=== PATIENT | male | born 1975 | race Caucasian/White ===

== ENCOUNTER 2019-09-23 02:47 | Inpatient (IN) ==
[2019-09-23] MEDS ORDERED: ONDANSETRON 4 MG/2 ML VIAL IV STA (03:18)
[2019-09-23 03:55] LABS: Basophils % 0.3 % (0.0-0.8); Eosinophils % 0.2 % (0.00-10.9); Hematocrit 44.6 VOL% (42.0-52.0); Hemoglobin 14.7 GM/DL (14.0-18.0); Immature Granulocytes % 0.5 %; Immature Granulocytes Absolute 0.04 #; Lymphocytes # 0.9 10*3/uL (1.4-4.0); Lymphocytes % 10.3 % (21.2-54.2); Mean Corpuscular Volume 95.7 FL (87-102); Monocytes % 9.7 % (1.7-12.7); Platelet Count 184 T/CUMM (130-400); Red Blood Count 4.66 MC/CUMM (3.8-5.5); Red Cell Distribution Width 11.9 % (9.3-17.3); White Blood Count 8.9 T/CUMM (4-12)
[2019-09-23 04:13] LABS: Apearance,Urine CLEAR (Clear); Bilirubin,Urine Negative (Negative); Blood, Urine Small mg/dL (Negative); Glucose,Urine (UA) Negative (Negative); Ketones,Urine 5 mg/dL (Negative); Mucus,Urine Occasional /LPF (Occasional); Nitrite,Urine Negative (Negative); Protein,Urine Negative; RBC,Urine <1 /HPF (0-4); Urine Color Yellow (Yellow); Urine Specific Gravity 1.018 (1.001-1.035); Urine Urobilinogen < 2.0 EU/DL (0.2-1.0); WBC,Urine 1 /HPF (0-6)
[2019-09-23 04:25] LABS: Albumin 3.1 G/DL (3.4-5.0); Bilirubin,Total 0.5 MG/DL (0.2-1.0); Osmolality,Calculated 263.4 MOS/KG (273-304); Total Protein 6.7 G/DL (6.4-8.3)
[2019-09-23] MEDS ORDERED: MORPHINE 4 MG/1 ML VIAL IV STA (04:27)
[2019-09-23] MEDS ORDERED: PIPERACILLIN/TAZOBACTAM 3,375 MG in SODIUM CHLORIDE 0.9% 100 ML IV STA (04:35)
[2019-09-23] MEDS ORDERED: ACETAMINOPHEN 325 MG TABLET PO PRN (04:59)
[2019-09-23] MEDS ORDERED: HYDROmorphone 2 MG/1 ML VIAL IV ONE (07:33)
[2019-09-23] MEDS ORDERED: ceFAZolin 1,000 MG in SYRINGE 1 EACH IV ONE (08:31)
[2019-09-23] MEDS: DEXTROSE 5% NACL 0.45% 1,000 ML IV SCH ×3 (10:07→15:01)
[2019-09-23] MEDS ORDERED: diphenhydrAMINE 50 MG/1 ML VIAL IV PRN (10:12)
[2019-09-23] MEDS ORDERED: PROMETHAZINE INJ 25 MG in SODIUM CHLORIDE 0.9% 50 ML IV PRN (10:12)
[2019-09-23] MEDS ORDERED: HYDROmorphone 2 MG/1 ML VIAL IV PRN (10:12)
[2019-09-23] MEDS ORDERED: MEPERIDINE 25 MG/1 ML VIAL IV PRN (10:12)
[2019-09-23] MEDS ORDERED: ONDANSETRON 4 MG/2 ML VIAL IV PRN (10:12)
[2019-09-23] MEDS ORDERED: MIDAZOLAM 2 MG/2 ML VIAL ONE ×2 (10:23→12:28)
[2019-09-23] MEDS ORDERED: ROPIVACAINE 0.5% 30 ML VIAL ONE (10:33)
[2019-09-23] MEDS ORDERED: LIDOCAINE 1% 5 ML VIAL ONE (10:33)
[2019-09-23] MEDS ORDERED: SUGAMMADEX 200 MG/2 ML VIAL IV ONE (11:10)
[2019-09-23] MEDS ORDERED: TISSUE ADHESIVE 1 EACH APPLICATOR TOP ONE (11:49)
[2019-09-23] MEDS ORDERED: ONDANSETRON 4 MG/2 ML VIAL ONE ×2 (12:13→12:28)
[2019-09-23] MEDS ORDERED: MEPERIDINE 25 MG/1 ML VIAL ONE (12:13)
[2019-09-23] MEDS ORDERED: KETOROLAC 30 MG/1 ML VIAL IV ONE (12:15)
[2019-09-23] MEDS ORDERED: ACETAMINOPHEN INJ 1,000 MG in PREMIX 1 EACH IV ONE (12:15)
[2019-09-23] MEDS ORDERED: KETOROLAC 30 MG/1 ML VIAL ONE (12:21)
[2019-09-23] MEDS ORDERED: ACETAMINOPHEN 1,000 MG/100 ML VIAL IV ONE (12:21)
[2019-09-23] MEDS ORDERED: propofoL 200 MG/20 ML VIAL IV ONE (12:27)
[2019-09-23] MEDS ORDERED: DESFLURANE 1 UNIT/15 MINUTE INH ONE (12:28)
[2019-09-23] MEDS ORDERED: LIDOCAINE 2% 5 ML VIAL ONE (12:28)
[2019-09-23] MEDS ORDERED: fentaNYL 250 MCG/5 ML VIAL ONE (12:28)
[2019-09-23] MEDS ORDERED: SUCCINYLCHOLINE 200 MG/10 ML VIAL ONE (12:29)
[2019-09-23] MEDS ORDERED: ROCURONIUM 100 MG/10 ML VIAL IV ONE (12:29)
[2019-09-23] MEDS ORDERED: PHENYLEPHRINE 1 MG/10 ML SYRINGE IV ONE (12:29)
[2019-09-23] MEDS: PANTOPRAZOLE 40 MG VIAL IV SCH (15:00)
[2019-09-23] MEDS: PIPERACILLIN/TAZOBACTAM 3,375 MG in SODIUM CHLORIDE 0.9% 100 ML IV SCH (17:19)
[2019-09-23] MEDS: ONDANSETRON 4 MG/2 ML VIAL IV PRN (20:30)
[2019-09-23] MEDS: MORPHINE 4 MG/1 ML VIAL IV PRN (20:34)
[2019-09-24] MEDS: DEXTROSE 5% NACL 0.45% 1,000 ML IV SCH ×3 (02:21→18:31)
[2019-09-24] MEDS: PIPERACILLIN/TAZOBACTAM 3,375 MG in SODIUM CHLORIDE 0.9% 100 ML IV SCH ×3 (02:21→17:07)
[2019-09-24] MEDS: ONDANSETRON 4 MG/2 ML VIAL IV PRN ×2 (02:30→21:24)
[2019-09-24] MEDS: MORPHINE 4 MG/1 ML VIAL IV PRN ×5 (02:34→21:27)
[2019-09-24 09:13] LABS: Calcium 8.6 MG/DL (8.5-10.1)
[2019-09-24 09:19] LABS: Basophils % 0.4 % (0.0-0.8); Eosinophils # 0.1 10*3/uL (0.0-0.87); Eosinophils % 1.2 % (0.00-10.9); Hemoglobin 14.5 GM/DL (14.0-18.0); Immature Granulocytes % 0.4 %; Immature Granulocytes Absolute 0.03 #; Lymphocytes # 0.9 10*3/uL (1.4-4.0); Lymphocytes % 11.2 % (21.2-54.2); Mean Corpuscular HGB Conc 33.7 GM/DL (32-36); Mean Corpuscular Volume 96.2 FL (87-102); Mean Platelet Volume 9.4 FL (9.6-12.0); Monocytes % 9.7 % (1.7-12.7); Neutrophils % 77.1 % (38.7-73.9); Platelet Count 184 T/CUMM (130-400); Red Blood Count 4.47 MC/CUMM (3.8-5.5); Red Cell Distribution Width 11.6 % (9.3-17.3); White Blood Count 7.7 T/CUMM (4-12)
[2019-09-24] MEDS: PANTOPRAZOLE 40 MG VIAL IV SCH (09:58)
[2019-09-25] MEDS: PIPERACILLIN/TAZOBACTAM 3,375 MG in SODIUM CHLORIDE 0.9% 100 ML IV SCH ×3 (00:45→18:16)
[2019-09-25] MEDS: DEXTROSE 5% NACL 0.45% 1,000 ML IV SCH ×3 (02:40→19:51)
[2019-09-25] MEDS: ONDANSETRON 4 MG/2 ML VIAL IV PRN (05:44)
[2019-09-25] MEDS: MORPHINE 4 MG/1 ML VIAL IV PRN (05:46)
[2019-09-25 08:40] LABS: Basophils % 0.4 % (0.0-0.8); Eosinophils # 0.2 10*3/uL (0.0-0.87); Eosinophils % 3.4 % (0.00-10.9); Hematocrit 41.2 VOL% (42.0-52.0); Hemoglobin 14.5 GM/DL (14.0-18.0); Immature Granulocytes % 0.3 %; Immature Granulocytes Absolute 0.02 #; Lymphocytes # 0.8 10*3/uL (1.4-4.0); Lymphocytes % 12.1 % (21.2-54.2); Mean Corpuscular HGB Conc 35.2 GM/DL (32-36); Mean Corpuscular Volume 91.8 FL (87-102); Mean Platelet Volume 9.4 FL (9.6-12.0); Monocytes % 9.1 % (1.7-12.7); Neutrophils % 74.7 % (38.7-73.9); Platelet Count 199 T/CUMM (130-400); Red Blood Count 4.49 MC/CUMM (3.8-5.5); Red Cell Distribution Width 11.4 % (9.3-17.3); White Blood Count 6.8 T/CUMM (4-12)
[2019-09-25] MEDS: PANTOPRAZOLE 40 MG VIAL IV SCH (08:40)
[2019-09-25] MEDS: diphenhydrAMINE CAP 50 MG CAPSULE PO PRN (21:01)
[2019-09-26] MEDS: PIPERACILLIN/TAZOBACTAM 3,375 MG in SODIUM CHLORIDE 0.9% 100 ML IV SCH ×3 (01:01→17:00)
[2019-09-26 07:38] LABS: Basophils % 0.7 % (0.0-0.8); Eosinophils # 0.4 10*3/uL (0.0-0.87); Eosinophils % 6.5 % (0.00-10.9); Hemoglobin 14.3 GM/DL (14.0-18.0); Immature Granulocytes % 0.5 %; Immature Granulocytes Absolute 0.03 #; Lymphocytes # 0.9 10*3/uL (1.4-4.0); Lymphocytes % 14.9 % (21.2-54.2); Mean Corpuscular HGB Conc 33.3 GM/DL (32-36); Mean Corpuscular Volume 94.5 FL (87-102); Mean Platelet Volume 9.1 FL (9.6-12.0); Neutrophils % 65.4 % (38.7-73.9); Platelet Count 222 T/CUMM (130-400); Red Blood Count 4.55 MC/CUMM (3.8-5.5); Red Cell Distribution Width 11.5 % (9.3-17.3); White Blood Count 5.7 T/CUMM (4-12)
[2019-09-26] MEDS: DEXTROSE 5% NACL 0.45% 1,000 ML IV SCH (08:06)
[2019-09-26] MEDS: PANTOPRAZOLE 40 MG VIAL IV SCH (08:47)
[2019-09-26] MEDS: diphenhydrAMINE CAP 50 MG CAPSULE PO PRN (21:21)
[2019-09-27] MEDS: PIPERACILLIN/TAZOBACTAM 3,375 MG in SODIUM CHLORIDE 0.9% 100 ML IV SCH ×2 (00:24→09:10)
[2019-09-27] MEDS: DEXTROSE 5% NACL 0.45% 1,000 ML IV SCH ×3 (01:13→15:15)
[2019-09-27 07:18] LABS: Basophils % 0.6 % (0.0-0.8); Eosinophils # 0.4 10*3/uL (0.0-0.87); Eosinophils % 6.8 % (0.00-10.9); Hematocrit 41.8 VOL% (42.0-52.0); Immature Granulocytes % 0.6 %; Immature Granulocytes Absolute 0.03 #; Lymphocytes # 1.1 10*3/uL (1.4-4.0); Lymphocytes % 20.7 % (21.2-54.2); Mean Corpuscular HGB Conc 33.5 GM/DL (32-36); Mean Corpuscular Volume 95.4 FL (87-102); Mean Platelet Volume 9.2 FL (9.6-12.0); Monocytes % 12.5 % (1.7-12.7); Neutrophils % 58.8 % (38.7-73.9); Platelet Count 216 T/CUMM (130-400); Red Blood Count 4.38 MC/CUMM (3.8-5.5); Red Cell Distribution Width 11.5 % (9.3-17.3); White Blood Count 5.3 T/CUMM (4-12)
[2019-09-27] MEDS: PANTOPRAZOLE 40 MG VIAL IV SCH (09:10)
[2019-09-27 11:32] VITALS: BP 107/63
== END 2019-09-27 15:14 | disposition home or self-care (01) | DRG 351 ==
LOC: N.ED 02:47 → N.EDINP 04:58 → N.3E 06:26
PROVIDERS: ADMIT Student in an Organized Health Care Education/Training Program; ATTEND Student in an Organized Health Care Education/Training Program